=== PATIENT | female | born 1985 | race Caucasian/White ===

== ENCOUNTER 2021-12-11 14:02 | Emergency (ER) | payer OTHER ==
[2021-12-11 14:25] LABS: BASOPHIL 0.2 % (0-2); EOSINOPHIL 0 % (0-5); HGB 13.3 g/dl (12.5-16.0); LYMPHOCYTE 12.4 % (15-48); MCHC 33.3 g/dL (32.0-36.0); MCV 90.3 fL (78.0-100.0); MPV 9.9 fL (6.0-9.5); NRBC 0; PLT 291 K/uL (150-400); RBC 4.43 M/uL (4.20-5.40); RDW 12.2 % (11.5-14.0); WBC 17.9 K/uL (4.0-10.5)
[2021-12-11 14:37] LABS: ALBUMIN 4.3 g/dL (3.4-5.0); BILIRUBIN - TOTAL 0.4 mg/dL (0.2-1.0); BUN/CREAT RATIO (CALC) 26.8 RATIO; CREATININE 0.82 mg/dL (0.51-0.95); GLOBULIN (CALCULATION) 3.6 g/dL; POTASSIUM 3.1 mmol/L (3.5-5.1); TOTAL PROTEIN 7.9 g/dL (6.4-8.2)
[2021-12-11 16:04] LABS: BILIRUBIN NEGATIVE (NEGATIVE); BLOOD NEGATIVE Ery/uL (NEGATIVE); CLARITY CLEAR (CLEAR); COLOR YELLOW (YELLOW); GLUCOSE (U) 3+ mg/dL (NORMAL); LEUKOCYTES NEGATIVE Leu/uL (NEGATIVE); NITRITE NEGATIVE (NEGATIVE); PROTEIN NEGATIVE (NEGATIVE); SPECIFIC GRAVITY 1.015 (1.001-1.030); UROBILINOGEN 0.2 mg/dL (0.2-1.0); pH 5.5 (5.0-9.0)
== END 2021-12-11 17:35 | disposition home or self-care (01) ==
LOC: FER 14:02
PROVIDERS: Emergency Medicine
DX: T78.2XXA Anaphylactic shock, unspecified, initial encounter (principal); R00.0 Tachycardia, unspecified; R73.9 Hyperglycemia, unspecified; I10 Essential (primary) hypertension; Z91.048 Other nonmedicinal substance allergy status
CPT/HCPCS: 36415; 71045; 80053; 81003; 85025; 93005; J7030